=== PATIENT | female | born 1960 | race Two or more races ===

== ENCOUNTER 2023-02-16 08:48 | Outpatient (CLI) | payer OTHER | END 2023-02-16 08:57 | disposition home or self-care (01) | LOC: LAB 08:48 | PROVIDERS: ATTEND Internal Medicine Cardiovascular Disease | DX: I10 Essential (primary) hypertension (principal); E11.9 Type 2 diabetes mellitus without complications; E03.9 Hypothyroidism, unspecified; E78.2 Mixed hyperlipidemia; K92.0 Hematemesis; Z12.11 Encounter for screening for malignant neoplasm of colon; E55.9 Vitamin D deficiency, unspecified ==

== ENCOUNTER 2023-02-16 09:38 | Outpatient (CLI) | payer OTHER | END 2023-02-16 09:44 | disposition home or self-care (01) | LOC: NUCLEAR 09:38 | PROVIDERS: ATTEND Internal Medicine Cardiovascular Disease | DX: I87.2 Venous insufficiency (chronic) (peripheral) (principal); E55.9 Vitamin D deficiency, unspecified; M81.0 Age-related osteoporosis without current pathological fracture ==

== ENCOUNTER 2023-02-16 10:49 | Outpatient (CLI) | payer OTHER | END 2023-02-16 11:19 | disposition home or self-care (01) | LOC: RAD 10:49 | PROVIDERS: ATTEND Internal Medicine Cardiovascular Disease | DX: Z12.31 Encounter for screening mammogram for malignant neoplasm of breast (principal); N63.12 Unspecified lump in the right breast, upper inner quadrant; J44.9 Chronic obstructive pulmonary disease, unspecified; M46.48 Discitis, unspecified, sacral and sacrococcygeal region; M12.9 Arthropathy, unspecified ==